=== PATIENT | female | born 1975 ===

== ENCOUNTER 2017-12-21 14:30 | Emergency (ER) | payer OTHER ==
[2017-12-21 15:03] VITALS: BP 134/87; PULSE 85; RESP 20; TEMP 98.1; O2SAT 100
--- NOTE | 2017-12-21 15:13 | C.PDOC ---
History Of Present Illness 42F c/o cough, congestion, body aches, subjective fever, diarrhea for 2 days. she denies any pmh. Time Seen by Provider: 12/21/17 15:04 Chief Complaint (Nursing): Cough, Cold, Congestion Past Medical History Vital Signs: Last Vital Signs Temp 98.1 F 12/21/17 15:00 Pulse 85 12/21/17 15:00 Resp 20 12/21/17 15:00 BP 134/87 12/21/17 15:00 Pulse Ox 100 12/21/17 15:00 Family History: States: Other Other Family History: nc - Social History Hx Alcohol Use: Yes Hx Substance Use: No - Immunization History Hx Tetanus Toxoid Vaccination: No Hx Influenza Vaccination: No Hx Pneumococcal Vaccination: No Review Of Systems Constitutional: Positive for: Fever, Chills, Weakness, Malaise ENT: Positive for: Nose Congestion Cardiovascular: Negative for: Chest Pain Respiratory: Positive for: Cough. Negative for: Shortness of Breath, Hemoptysis Gastrointestinal: Positive for: Diarrhea. Negative for: Nausea, Vomiting, Abdominal Pain Neurological: Negative for: Weakness, Numbness Physical Exam - Physical Exam Appears: Well, Non-toxic, No Acute Distress Skin: Warm, Dry Eye(s): bilateral: PERRL Oral Mucosa: Moist Lips: No Swelling Neck: Supple Cardiovascular: Rhythm Regular Respiratory: No Decreased Breath Sounds, No Accessory Muscle Use, No Rales, No Rhonchi, No Stridor, No Wheezing Gastrointestinal/Abdominal: Soft, No Tenderness Neurological/Psych: Oriented x3, Normal Motor, Normal Sensation, Other (no focal deficits) ED Course And Treatment O2 Sat by Pulse Oximetry: 100 Disposition - Disposition Disposition: HOME/ ROUTINE Disposition Time: 15:11 Condition: STABLE Instructions: Influenza (ED) - Clinical Impression Clinical Impression: Influenza-like illness
== END 2017-12-21 15:34 | disposition home or self-care (01) ==
LOC: C.ER 14:30
DX: J11.1 Influenza due to unidentified influenza virus with other respiratory manifestations (principal)